=== PATIENT | female | born 1930 | race Hispanic/Latino ===

== ENCOUNTER 2016-12-03 08:24 | Emergency (ER) | payer MEDICARE, OTHER ==
[~2016-12-03] VITALS: Ht 152.4 cm; Wt 57.2 kg
[~2016-12-03 08:24] MED LIST: ASPIRIN81 MG NG; CARVEDILOL12.5 MG ORAL; LIPITOR20 MG ORAL; MACROBID100 MG ORAL; METOPROLOL TART25 MG ORAL; NAMENDA5 MG ORAL; NIASPAN ER750 MG ORAL; OMEPRAZOLE20 M2 ORAL; UNOBMED
--- NOTE | 2016-12-03 08:38 | Emergency Room Report ---
History of Present Illness General Chief Complaint: Chest Pain Source: Patient Present Illness HPI Patient presents with complaints of midsternal chest pain she reports the pain started this morning upon awakening And soon before calling the paramedics Pain is 7/10 heaviness midsternal Patient reports being on hypertensive medications Denies any blood thinners other than aspirin Denies any headache or visual changes Denies any shortness of breath Denies any vomiting or diarrhea Allergies: Coded Allergies: No Known Allergies (Verified , 08/26/06) Patient History Past Medical History: see triage record Pertinent Family History: none Reviewed Nursing Documentation: PMH: Agreed, PSxH: Agreed Nursing Documentation-PM Past Medical History: No History, Except For Hx Cardiac Problems: Yes - stent valve Hx Hypertension: Yes Hx Cancer: Yes - rt masectomy Hx Gastrointestinal Problems: No 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 Review of Systems All Other Systems: negative except mentioned in HPI Physical Exam Vital Signs Date Time Temp Pulse Resp B/P Pulse Ox O2 Delivery O2 Flow Rate FiO2 12/03/16 08:17 98.4 90 16 142/80 99 Room Air Sp02 EP Interpretation: reviewed, normal General Appearance: mild distress - appears in acute pain Head: normocephalic, atraumatic Eyes: bilateral eye EOMI, bilateral eye PERRL ENT: hearing grossly normal, normal pharynx, TMs + canals normal, uvula midline Neck: full range of motion, supple, no meningismus, no bony tend Respiratory: lungs clear, normal breath sounds, no rhonchi, no respiratory distress, no retraction, no accessory muscle use Cardiovascular #1: normal peripheral pulses, regular rate, rhythm, no edema, no gallop, no JVD, no murmur Gastrointestinal: normal bowel sounds, non tender, soft, no mass, no organomegaly, non-distended, no guarding, no hernia, no pulsatile mass, no rebound Genitourinary: no CVA tenderness Musculoskeletal: normal inspection Neurologic: oriented x3, responsive, test eng III-XII nml as tested, motor strength/ tone normal, sensory intact Psychiatric: mood/affect normal Skin: normal color, no rash, warm/dry, palpation normal Lymphatic: normal inspection, no adenopathy Procedures Critical Care Time Critical Care Time 30 minutes for critical findings including ST elevation GA Concern for end organ injury and possible life-threatening pathology Not including any procedural time Medical Decision Making Diagnostic Impression: Primary Impression: STEMI (ST elevation myocardial infarction) ER Course Patient is a fairly complex patient with multiple differential to consideration including but not limited to cardiac cardiopulmonary and vascular emergencies Initial EKG appears to show anterior wall GA EKG was repeated and it does appear to be progressing Patient received aspirin nitroglycerin At this time was given bolus of heparin Patient requires transfer for higher level of care Labs Test 12/03/16 08:30 White Blood Count 8.2 K/UL (4.8-10.8) Red Blood Count 4.28 M/UL (4.20-5.40) Hemoglobin 13.4 G/DL (12.0-16.0) Hematocrit 40.2 % (37.0-47.0) Mean Corpuscular Volume 94 FL (80-99) Mean Corpuscular Hemoglobin 31.3 PG (27.0-31.0) Mean Corpuscular Hemoglobin Concent 33.4 G/DL (32.0-36.0) Red Cell Distribution Width 12.9 % (11.6-14.8) Platelet Count 236 K/UL (150-450) Mean Platelet Volume 6.3 FL (6.5-10.1) Neutrophils (%) (Auto) 49.8 % (45.0-75.0) Lymphocytes (%) (Auto) 36.7 % (20.0-45.0) Monocytes (%) (Auto) 7.9 % (1.0-10.0) Eosinophils (%) (Auto) 4.6 % (0.0-3.0) Basophils (%) (Auto) 1.0 % (0.0-2.0) Prothrombin Time 10.9 SEC (9.30-11.50) Prothromb Time International Ratio 1.1 (0.9-1.1) Activated Partial Thromboplast Time 25 SEC (23-33) Sodium Level 141 mEQ/L (135-145) Potassium Level 3.8 mEQ/L (3.4-4.9) Chloride Level 102 mEQ/L (98-107) Carbon Dioxide Level 21 mEQ/L (20-30) Anion Gap 18 (5-15) Blood Urea Nitrogen 20 mg/dL (7-23) Creatinine 1.0 mg/dL (0.5-0.9) Estimat Glomerular Filtration Rate mL/min (>60) Glucose Level 177 mg/dL (74-106) Calcium Level 8.8 mg/dL (8.6-10.2) Total Bilirubin 0.4 mg/dL (0.0-1.2) Aspartate Amino Transf (AST/SGOT) 17 U/L (5-40) Alanine Aminotransferase (ALT/SGPT) 11 U/L (3-33) Alkaline Phosphatase 67 U/L (35-104) Total Creatine Kinase 83 U/L (26-140) Creatine Kinase MB 2.9 ng/mL (< 3.8) Creatine Kinase MB Relative Index 3.4 Troponin I < 0.30 ng/mL (<=0.30) Pro-B-Type Natriuretic Peptide 113 pg/mL (0-450) Total Protein 7.2 g/dL (6.6-8.7) Albumin 3.8 g/dL (3.5-5.2) Globulin 3.4 g/dL Albumin/Globulin Ratio 1.1 (1.0-2.7) EKG Diagnostic Results Rate: bradycardiac Rhythm: other ST Segments: other - ST elevations, anterior leads, reciprocal changes Rhythm Strip Diag. Results EP Interpretation: yes Rate: 69 Rhythm: NSR, no PVC's, no ectopy Chest X-Ray Diagnostic Results EP Interpretation: Yes Findings: no pneumothorax, other - There is a projectional the left lower lobe , unclear if this is a external pad, otherwise consideration for left lower lobe atelectasis/effusion is made calcification of the vessels no acute bony abnormalities Number of Views: 1 Last Vital Signs Date Time Temp Pulse Resp B/P Pulse Ox O2 Delivery O2 Flow Rate FiO2 12/03/16 08:17 98.4 90 16 142/80 99 Room Air Status: unchanged Disposition: [facility] Condition: Critical DAKOTA NOGUEIRA D.O. Dec 03, 2016 08:38
[2016-12-03] MEDS ORDERED: Morphine Sulfate 4mg/ml Inj ONE (08:41)
[2016-12-03 08:45] VITALS: BP 111/62
[2016-12-03] MEDS ORDERED: Morphine Sulfate 4mg/ml Inj IVP ONE ×2 (08:45→09:00)
[2016-12-03] MEDS ORDERED: Heparin 5000 units/ml inj IV ONE (08:45)
[2016-12-03 08:48] LABS: EOSINOPHILS % (AUTO) 4.6 % (0.0-3.0); LYMPHOCYTES % (AUTO) 36.7 % (20.0-45.0); MEAN CORPUSCULAR HEMOGLOBIN 31.3 PG (27.0-31.0); MEAN CORPUSCULAR HGB CONC 33.4 G/DL (32.0-36.0); MEAN CORPUSCULAR VOLUME 94 FL (80-99); MEAN PLATELET VOLUME 6.3 FL (6.5-10.1); MONOCYTES % (AUTO) 7.9 % (1.0-10.0); NEUTROPHILS % (AUTO) 49.8 % (45.0-75.0); PLATELET COUNT 236 K/UL (150-450); RED BLOOD COUNT 4.28 M/UL (4.20-5.40); RED CELL DISTRIBUTION WIDTH 12.9 % (11.6-14.8); WHITE BLOOD COUNT 8.2 K/UL (4.8-10.8)
[2016-12-03 08:55] LABS: INR 1.1 (0.9-1.1); PROTHROMBIN TIME 10.9 SEC (9.30-11.50)
[2016-12-03 09:01] VITALS: BP 93/52
[2016-12-03 09:05] VITALS: BP 93/52
[2016-12-03 09:16] LABS: TROPONIN I < 0.30 ng/mL (<=0.30)
[2016-12-03 09:18] LABS: ALANINE AMINOTRANSFERASE 11 U/L (3-33); ALBUMIN/GLOBULIN RATIO 1.1 (1.0-2.7); ANION GAP 18 (5-15); ASPARTATE AMINO TRANSFERASE 17 U/L (5-40); CALCIUM 8.8 mg/dL (8.6-10.2); CARBON DIOXIDE 21 mEQ/L (20-30); CHLORIDE 102 mEQ/L (98-107); HEMOLYSIS 5; POTASSIUM 3.8 mEQ/L (3.4-4.9); SODIUM 141 mEQ/L (135-145); TOTAL PROTEIN 7.2 g/dL (6.6-8.7)
[2016-12-03 09:29] LABS: CKMB 2.9 ng/mL (< 3.8)
--- NOTE | 2016-12-03 12:28 | Diagnostic Imaging Report ---
Indication: Chest pain Technique: One view of the chest Comparison: none Findings: There is persistent mild elevation of the left hemidiaphragm. Left chest wall surgical clips are again demonstrated. Lungs and pleural spaces are clear. The heart is borderline enlarged. Findings are unchanged. Impression: Cardiomegaly No definite acute process
--- NOTE | 2016-12-04 15:00 | Cardiology Report ---
APPROVED REPORT EKG Measurement Heart [id number] Sinus bradycardia Right bundle branch block ST elevation in V1 consider anterior injury or acute infarct of right ventricle. ST depression in V2, consider posterior wall ischemia Tall R wave in V2, consider posterior wall infarct, probably recently. Abnormal ECG
== END 2016-12-03 09:12 | disposition short-term general hospital (02) ==
LOC: EDBD 08:24 → EMR 08:39
DX: I21.3 ST elevation (STEMI) myocardial infarction of unspecified site (principal); I10 Essential (primary) hypertension; Z90.11 Acquired absence of right breast and nipple; Z86.73 Personal history of transient ischemic attack (TIA), and cerebral infarction without residual deficits
CPT/HCPCS: 36415; 71010; 80053; 82550; 82553; 83880; 84484; 85025; 85610; 85730; 93005; 96374; 96375; 99291; J1644; J2270; J2405